=== PATIENT | male | born 1990 | race Caucasian/White ===

== ENCOUNTER 2019-08-12 02:20 | Emergency (ER) | payer SELFPAY ==
[~2019-08-12] VITALS: Ht 182.9 cm; Wt 68.0 kg
[2019-08-12 02:20] VITALS: BP 136/95
--- NOTE | 2019-08-12 02:20 | NUR ---
PT BIB [facility], PREBOOK. TAKEN TO [facility]AIR C
[2019-08-12 03:07] VITALS: BP 136/95
--- NOTE | 2019-08-12 03:07 | NUR ---
PATIENT BIB [facility] POLICE DEPT. PATIENT EXAMINED BY DR. HUNG. PATIENT MEDICALLY CLEARED AND RELEASED IN CUSTODY IN STABLE CONDITION. ORIGINAL PRE-BOOK FORM GIVEN TO [facility] OFFICER.
== END 2019-08-12 03:07 ==
LOC: MED 02:20
DX: Z02.89 Encounter for other administrative examinations (principal); Z04.1 Encounter for examination and observation following transport accident
CPT/HCPCS: 99283